=== PATIENT | female | born 1960 | race Two or more races ===

== ENCOUNTER 2019-01-06 11:15 | Outpatient (CLI) | payer OTHER ==
[~2019-01-06 11:15] MED LIST: NABUMETONE500 MG PO; PERCOCET 5/3251 TAB PO
== END 2019-01-06 11:47 | disposition home or self-care (01) ==
LOC: RAD 11:15
DX: M25.571 Pain in right ankle and joints of right foot (principal); M25.572 Pain in left ankle and joints of left foot

== ENCOUNTER 2019-01-08 08:34 | Outpatient (CLI) | payer OTHER | END 2019-01-08 08:36 | disposition home or self-care (01) | LOC: MRI 08:34 | DX: M25.572 Pain in left ankle and joints of left foot (principal) | CPT/HCPCS: 73718 ==

== ENCOUNTER 2019-01-12 13:48 | Outpatient (CLI) | payer OTHER | END 2019-01-12 13:50 | disposition home or self-care (01) | LOC: RAD 13:48 | DX: M54.2 Cervicalgia (principal); M54.5 Low back pain ==

== ENCOUNTER 2019-01-13 12:08 | Outpatient (CLI) | payer OTHER | END 2019-01-13 12:24 | disposition home or self-care (01) | LOC: LAB 12:08 | DX: D68.8 Other specified coagulation defects (principal); E78.2 Mixed hyperlipidemia; N39.0 Urinary tract infection, site not specified; R07.89 Other chest pain; I10 Essential (primary) hypertension ==

== ENCOUNTER 2019-01-14 11:00 | Outpatient (CLI) | payer OTHER | END 2019-01-14 11:07 | disposition home or self-care (01) | LOC: MRI 11:00 | DX: M54.2 Cervicalgia (principal); M54.5 Low back pain | CPT/HCPCS: 72141; 72148 ==